=== PATIENT | female | born 1970 | race Caucasian/White ===

== ENCOUNTER 2020-07-17 10:46 | Emergency (ER) | payer BC ==
[~2020-07-17] VITALS: Ht 167.6 cm; Wt 88.0 kg
[2020-07-17] MEDS ORDERED: SODIUM CHLORIDE 0.9% 1,000 ML IV ONE (11:15)
[2020-07-17 11:36] LABS: BASOPHILS % 0.7 % (0.0-2.0); EOSINOPHILS % 0.2 % (0.0-5.0); HEMATOCRIT. 41.5 % (36.0-48.0); HEMOGLOBIN. 13.9 g/dL (12.0-16.0); LYMPHOCYTES % 20.4 % (20.0-50.0); MEAN CORPUSCULAR HEMOGLOBIN 29.4 pg (28.0-32.0); MEAN CORPUSCULAR VOLUME 87.6 fL (81.0-99.0); MEAN PLATELET VOLUME 9.3 fl (7.4-10.4); MONOCYTES % 6.6 % (2.0-8.0); NEUTROPHILS % 72.1 % (40.0-76.0); PLATELET 391 x1000/uL (130-400); RED BLOOD CELL COUNT 4.74 mill/uL (4.2-5.4); RED CELL DISTRIBUTION WIDTH 12.9 % (11.6-14.6)
[2020-07-17 11:42] LABS: CHLORIDE 105 mEq/L (98-107)
[2020-07-17 12:51] VITALS: BP 137/76
== END 2020-07-17 12:53 | disposition home or self-care (01) ==
LOC: ER 10:46
DX: I47.1 Supraventricular tachycardia (principal); I10 Essential (primary) hypertension; E11.9 Type 2 diabetes mellitus without complications; E78.5 Hyperlipidemia, unspecified
CPT/HCPCS: 36415; 80053; 83880; 84484; 85025; 85379; 93005; 96360; 99291; J7030